=== PATIENT | male | born 1990 | race Caucasian/White ===

== ENCOUNTER 2017-03-19 11:33 | Emergency (ER) | payer MEDICAID, OTHER ==
[~2017-03-19] VITALS: Ht 162.6 cm; Wt 69.0 kg
[~2017-03-19 11:33] MED LIST: GUAI120S26 PO; LORA-186 PO
[2017-03-19 11:34] VITALS: Ht 162.6 cm; Wt 69.0 kg
[2017-03-19] MEDS ORDERED: LIDOCAINE 1% (MDV) 10 ML INJ INJ STA (12:47)
[2017-03-19] MEDS ORDERED: STERILE WATER 1L IRRIG BTL IRR STA (12:47)
[2017-03-19] MEDS ORDERED: ACETAMINOPHEN 325 MG TAB PO ONE (13:00)
[2017-03-19] MEDS ORDERED: CEPH-443 PO (13:27)
[2017-03-19] MEDS ORDERED: CEPHALEXIN 500 MG CAP PO ONE (13:30)
--- NOTE | 2017-03-19 13:32 | ERD ---
ER Documentation Chief Complaint Chief Complaint Lac on forehead x 12 hours fell down stairs HPI This 26-year-old male gives a history of tripping down some stairs last night and hitting his forehead on concrete. He presents to the ER this morning for a laceration on his forehead. Denies any loss of consciousness, vomiting, fevers , visual changes, neck pain, weakness. Tetanus is up-to-date. ROS All systems reviewed and are negative except as per history of present illness. Medications Home Meds Active Scripts Cephalexin* (Keflex*) 500 Mg Capsule, 500 MG PO QID for 5 Days, CAP Prov:COLETTE VALENZUELA MD 03/19/17 Loratadine* (Claritin*) 10 Mg Tablet, 10 MG PO DAILY, #30 TAB Prov:EDDIE NEVILLE NP 10/12/14 Glzzbofhjtb-J-Nczqvpecqn Hb* (Guaifenesin* DM Syrup) 120 Ml Syrup, 10 ML PO Q4H Y for COUGH, #1 BOT Prov:EDDIE NEVILLE NP 10/12/14 Allergies Allergies: Coded Allergies: No Known Allergy (Unverified , 10/12/14) PMhx/Soc Medical and Surgical Hx: pt denies Medical Hx, pt denies Surgical Hx History of Surgery: No Anesthesia Reaction: No Hx Neurological Disorder: No Hx Respiratory Disorders: No Hx Cardiac Disorders: No Hx Psychiatric Problems: No Hx Miscellaneous Medical Probl: No Hx Alcohol Use: No Hx Substance Use: No Hx Tobacco Use: No Smoking Status: Never smoker Physical Exam Vitals Vital Signs Date Time Temp Pulse Resp B/P Pulse Ox O2 Delivery O2 Flow Rate FiO2 03/19/17 11:34 97.3 102 19 135/90 99 Physical Exam Const: [], Wep-irv-taxjukwmn. Head: Atraumatic. 3 cm laceration horizontally between the eyebrows. No bony tenderness or deformities. Eyes: Normal Conjunctiva. Eyes PERRLA and extraocular movements intact. ENT: Normal External Ears, Nose and Mouth. Neck: Full range of motion..~ No meningismus. Resp: Clear to auscultation bilaterally Cardio: Regular rate and rhythm, no murmurs Abd: Soft, non tender, non distended. Normal bowel sounds Skin: No petechiae or rashes Back: No midline or flank tenderness Ext: No cyanosis, or edema Neur: Awake and alert. No appreciable focal neurologic deficits. Psych: Normal Mood and Affect Results 24 hrs Current Medications Medications (Trade) Dose Ordered Sig/Andrei Route PRN Reason Start Time Stop Time Status Last Admin Dose Admin Acetaminophen (Tylenol Tab) 325 mg ONCE ONCE PO 03/19/17 13:00 03/19/17 13:01 DC 03/19/17 12:58 Sterile Water (Water Sterile For Irrigation) 1,000 ml ONCE STAT IRR 03/19/17 12:47 03/19/17 12:48 DC 03/19/17 12:54 Lidocaine HCl (Lidocaine 1% (Mdv) 10 ml) 10 ml ONCE STAT INJ 03/19/17 12:47 03/19/17 12:49 DC Cephalexin (Keflex) 500 mg ONCE ONCE PO 03/19/17 13:30 03/19/17 13:31 Procedures/MDM Patient presents with a laceration of the forehead which is 68 hours old. There is no signs or symptoms to suggest fracture, intracranial bleeding, neck pain or injury or neurologic deficits. There is no current signs of infection. Procedure note-forehead laceration was irrigated topically with normal saline. 2 cc of lidocaine was used for local infiltration. 7 6-0 nylon sutures were used to approximate the wound and the patient tolerated procedure well and the wound was dressed. Patient was counseled on delayed closure wound as the wound edges were slightly swollen and may affect wound healing or increased risk of infection or scarring. Patient is given Keflex 500 mg here and will be treated with Keflex, instructions for 2 day wound check in 5-7 days suture removal and head injury precautions. Patient has no signs or symptoms currently of head injury or neck injury but is advised to recheck for new or worsening symptoms as directed. Disclaimer: Inadvertent spelling and grammatical errors are likely due to EHR/ dictation software use and do not reflect on the overall quality of patient care. Also, please note that the electronic time recorded on this note does not necessarily reflect the actual time of the patient encounter. Departure Diagnosis: Primary Impression: Head injury Encounter type: initial encounter Qualified Code: S09.90XA - Injury of head , initial encounter Additional Impression: Laceration Condition: Stable Patient Instructions: HEAD INJURY, No Wake-Up (Adult), Laceration, Face ( Suture Or Tape) Additional Instructions: 2 days wound check in 5-7 days suture removal. Recheck sooner for fevers, vomiting, new symptoms. COLETTE VALENZUELA MD Mar 19, 2017 13:32
== END 2017-03-19 14:00 | disposition home or self-care (01) ==
LOC: FTE 11:33
DX: S01.81XA Laceration without foreign body of other part of head, initial encounter (principal); S09.90XA Unspecified injury of head, initial encounter; W10.8XXA Fall (on) (from) other stairs and steps, initial encounter; Y92.9 Unspecified place or not applicable
CPT/HCPCS: 12013; A4217; Z7502; Z7610

== ENCOUNTER 2017-03-21 10:59 | Emergency (ER) | payer MEDICAID, OTHER ==
[~2017-03-21] VITALS: Ht 167.6 cm; Wt 72.9 kg
[~2017-03-21 10:59] MED LIST changes: +CEPH-443 PO
[2017-03-21 11:05] VITALS: Ht 167.6 cm; Wt 72.9 kg
--- NOTE | 2017-03-21 12:15 | ERD ---
ER Documentation Chief Complaint Chief Complaint HAD SUTURES 2 DAYS AGO ON HIS FOREHEAD AND F/U HPI 26-year-old male comes in for wound check from sutures that were placed 2 days ago from a fall. Patient states that he fell forward hitting the concrete, there was no loss consciousness or vomiting. The sutures were placed and the patient was started on Keflex. He denies any headaches, blurry vision, nausea or vomiting. ROS All systems reviewed and are negative except as per history of present illness. Medications Home Meds Active Scripts Cephalexin* (Keflex*) 500 Mg Capsule, 500 MG PO QID for 5 Days, CAP Prov:COLETTE VALENZUELA MD 03/19/17 Loratadine* (Claritin*) 10 Mg Tablet, 10 MG PO DAILY, #30 TAB Prov:EDDIE NEVILLE NP 10/12/14 Rhjrjitecki-Q-Guglpcbtyr Hb* (Guaifenesin* DM Syrup) 120 Ml Syrup, 10 ML PO Q4H Y for COUGH, #1 BOT Prov:EDDIE NEVILLE NP 10/12/14 Allergies Allergies: Coded Allergies: No Known Allergy (Unverified , 10/12/14) PMhx/Soc History of Surgery: No Anesthesia Reaction: No Hx Neurological Disorder: No Hx Respiratory Disorders: No Hx Cardiac Disorders: No Hx Psychiatric Problems: No Hx Miscellaneous Medical Probl: No Hx Alcohol Use: No Hx Substance Use: No Hx Tobacco Use: No Physical Exam Vitals Vital Signs Date Time Temp Pulse Resp B/P Pulse Ox O2 Delivery O2 Flow Rate FiO2 03/21/17 11:05 98.0 78 14 114/72 98 Physical Exam General: Well-developed, well-nourished. The patient appears in no acute distress. HEENT: Head is normocephalic, atraumatic. No scleral icterus. 7 simple interrupted sutures intact, no dehiscence, erythema or drainage, there is a hematoma surrounding the wound. Neck: Supple. Nontender. Lungs: Clear to auscultation. Normal air movement. Heart: Regular rate and rhythm. S1 and S2 are normal. No murmurs, gallops, or rubs. Abdomen: Nondistended. Extremities: No clubbing or cyanosis. Moving extremities x 4. No weakness. Neurologic: Alert and oriented 3. No focal deficits. Normal speech and gait. Skin: Normal turgor. No rash or lesions. Procedures/MDM Wound shows no evidence of infection, foreign body, neurologic injury, vascular injury, open joint or tendon laceration. Patient appropriate for outpatient follow up. Departure Diagnosis: Primary Impression: Encounter for wound re-check Patient Instructions: Wound Check, Lac F/U (No Infection) TIMBO NOVOA PA-C Mar 21, 2017 12:15
== END 2017-03-21 11:57 | disposition home or self-care (01) ==
LOC: FTE 10:59
DX: Z48.01 Encounter for change or removal of surgical wound dressing (principal)
CPT/HCPCS: 99281

== ENCOUNTER 2017-03-24 13:14 | Emergency (ER) | payer OTHER ==
[~2017-03-24] VITALS: Ht 167.6 cm; Wt 72.3 kg
[2017-03-24 13:24] VITALS: Ht 167.6 cm; Wt 72.3 kg
[2017-03-24] MEDS ORDERED: NEOM1PAC TP (15:13)
--- NOTE | 2017-03-24 15:19 | ERD ---
ER Documentation Chief Complaint Chief Complaint forehead suture removal HPI This 26-year-old male presents the emergency department today for suture removal sutures that he had placed 5 days ago after slipping and falling down some stairs and hitting his head. Denies any fevers or chills, headache, dizziness or blurred vision. States he is taking his antibiotics. ROS All systems reviewed and are negative except as per history of present illness. Medications Home Meds Active Scripts Neomycin Negrete/Bacitrac Zn/Poly (Triple Antibiotic Ointment) 1 Each Oint.pack, 1 EACH TP BID for 7 Days Prov:BEBETO ADAN PA-C 03/24/17 Cephalexin* (Keflex*) 500 Mg Capsule, 500 MG PO QID for 5 Days, CAP Prov:COLETTE VALENZUELA MD 03/19/17 Loratadine* (Claritin*) 10 Mg Tablet, 10 MG PO DAILY, #30 TAB Prov:EDDIE NEVILLE NP 10/12/14 Krlzfirvedc-T-Dqaszdwaii Hb* (Guaifenesin* DM Syrup) 120 Ml Syrup, 10 ML PO Q4H Y for COUGH, #1 BOT Prov:EDDIE NEVILLE NP 10/12/14 Allergies Allergies: Coded Allergies: No Known Allergy (Unverified , 10/12/14) PMhx/Soc History of Surgery: No Anesthesia Reaction: No Hx Neurological Disorder: No Hx Respiratory Disorders: No Hx Cardiac Disorders: No Hx Psychiatric Problems: No Hx Miscellaneous Medical Probl: No Hx Alcohol Use: No Hx Substance Use: No Hx Tobacco Use: No Smoking Status: Never smoker Physical Exam Vitals Vital Signs Date Time Temp Pulse Resp B/P Pulse Ox O2 Delivery O2 Flow Rate FiO2 03/24/17 13:24 97.9 98 18 121/67 97 Physical Exam Const: NAD Head: Evidence of 7 sutures placed left side of forehead. Eyes: Normal Conjunctiva ENT: Normal External Ears, Nose and Mouth. Neck: Full range of motion..~ No meningismus. Resp: Clear to auscultation bilaterally Cardio: Regular rate and rhythm, no murmurs Abd: Soft, non tender, non distended. Normal bowel sounds Skin: Evidense of 7 sutures placed left side of forehead. Well-healed and well approximated. No purulent drainage erythema or warmth. Neur: Awake and alert Psych: Normal Mood and Affect Procedures/MDM This is a 26-year-old male who presents emergency department today for suture removal of sutures he had placed several days ago. Upon review of patient's medical records patient was seen here March 19 and had 7 sutures placed on the left side of his forehead after tripping and falling down some stairs and hitting his head. At this time patient is afebrile and otherwise well- appearing. He does indicate that he is taking his antibiotics. He was instructed to continue taking them for the next couple of days. He denies any headache, dizziness blurred vision I do not feel the patient requires further workup or imaging at this time. Low suspicion for acute hemorrhage, mass, abscess, meningitis. Low suspicion for sepsis, deep space tracking infection. 7 sutures removed without complication. Patient tolerated procedure well. I did place a few Steri-Strips instructed the patient keep it dry for another couple of days. The wound is well-healed and well approximated at this time. She was also given a prescription for triple antibiotic ointment. Departure Diagnosis: Primary Impression: Encounter for removal of sutures Condition: Fair Patient Instructions: Suture Removal, No Complication Referrals: [facility] YOU HAVE RECEIVED A MEDICAL SCREENING EXAM AND THE RESULTS INDICATE THAT YOU DO NOT HAVE A CONDITION THAT REQUIRES URGENT TREATMENT IN THE EMERGENCY DEPARTMENT. FURTHER EVALUATION AND TREATMENT OF YOUR CONDITION CAN WAIT UNTIL YOU ARE SEEN IN YOUR DOCTORS OFFICE WITHIN THE NEXT 1-2 DAYS. IT IS YOUR RESPONSIBILITY TO MAKE AN APPOINTMENT FOR FOLOW-UP CARE. IF YOU HAVE A PRIMARY DOCTOR --you should call your primary doctor and schedule an appointment IF YOU DO NOT HAVE A PRIMARY DOCTOR YOU CAN CALL OUR PHYSICIAN REFERRAL HOTLINE AT IF YOU CAN NOT AFFORD TO SEE A PHYSICIAN YOU CAN CHOSE FROM THE FOLLOWING [facility] [address] [place] [facility] [address] [facility] [address] [facility] [address] [facility] [address] [place] [address]. [facility] [address] Additional Instructions: Call your primary care doctor TOMORROW for an appointment during the next 1-2 days.See the doctor sooner or return here if your condition worsens before your appointment time. Wound clean and dry for another couple of days. Okay to remove Steri-Strips at that time. Okay to use triple antibiotic ointment BEBETO ADAN PA-C Mar 24, 2017 15:19
== END 2017-03-24 15:32 | disposition home or self-care (01) ==
LOC: FTE 13:14
DX: Z48.02 Encounter for removal of sutures (principal)
CPT/HCPCS: 99283

== ENCOUNTER 2017-07-25 23:39 | Emergency (ER) | END 2017-07-26 02:33 | disposition home or self-care (01) ==

== ENCOUNTER 2018-06-08 19:33 | Emergency (ER) | payer OTHER ==
[~2018-06-08] VITALS: Ht 170.2 cm; Wt 80.8 kg
[~2018-06-08 19:33] MED LIST changes: +AMOX500C2 PO; +CETI10CA PO; +IBUP-1542 PO; +NEOM1PAC TP
[2018-06-08 19:58] VITALS: Ht 170.2 cm; Wt 80.8 kg
[2018-06-08] MEDS ORDERED: SOD CHLORIDE 0.9% 1,000 ML IV STA (20:21)
[2018-06-08 20:36] VITALS: TEMP 98.1
--- NOTE | 2018-06-09 00:19 | ERD ---
ER Documentation Chief Complaint Chief Complaint Fall to floor after dizziness, hit face, R face swelling, R ear pain, dizzi HPI This is a 27-year-old male with a distant history of significant alcohol abuse is presenting after a syncopal event. The patient reports frequent episodes of increased nausea, dizziness and lightheadedness after going from laying down to sitting or sitting to standing. This is been ongoing for several months. Usually he has to equilibrate himself before getting up and the symptoms typically go away. The patient reports that this does not happen every day, when it does, he feels very dizzy, like the room is spinning around him. The patient also endorses chronic right ear pain and fullness. He frequently puts hydrogen peroxide into this ear and uses Q-tips so frequently that it has led to abrasions of the canal. The patient reports waking up this morning and getting up when the symptoms recurred and the patient fully syncopized for a few seconds. He did have a ground-level fall and reports hitting the right side of his face on the floor. There is no generalized shaking. The patient was not incontinent of urine or stool. The patient was not confused after the event. The patient currently feels a little fatigued, but otherwise has no complaints at this time. His symptoms have mostly resolved aside from a mild headache where he hit his face on the floor. The patient denies feeling sick recently. The patient denies fever or chills. The patient has had no vision changes. The patient does not endorse neck or back pain. The patient has had no chest pain or trouble breathing. The patient denies abdominal pain. The patient denies changes to bowel movements or urination. The patient has had no focal deficits. The patient has had no weakness or numbness or tingling to the face or extremities. ROS All systems reviewed and are negative except as per history of present illness. Medications Home Meds Active Scripts Ibuprofen* (Motrin*) 600 Mg Tab, 600 MG PO Q6H PRN for PAIN AND OR ELEVATED TEMP, #30 TAB Prov:EDDIE NEVILLE NP 07/26/17 Cetirizine Hcl* (Zyrtec*) 10 Mg Capsule, 10 MG PO DAILY, #30 TAB.CHEW Prov:EDDIE NEVILLE NP 07/26/17 Amoxicillin* (Amoxicillin*) 500 Mg Cap, 500 MG PO TID for 10 Days, CAP Prov:EDDIE NEVILLE NP 07/26/17 Neomycin Negrete/Bacitrac Zn/Poly (Triple Antibiotic Ointment) 1 Each Oint.pack, 1 EACH TP BID for 7 Days Prov:BEBETO ADAN PA-C 03/24/17 Cephalexin* (Keflex*) 500 Mg Capsule, 500 MG PO QID for 5 Days, CAP Prov:COLETTE VALENZUELA MD 03/19/17 Loratadine* (Claritin*) 10 Mg Tablet, 10 MG PO DAILY, #30 TAB Prov:EDDIE NEVILLE NP 10/12/14 Owcgejnyvti-F-Kabqsjyudy Hb* (Guaifenesin* DM Syrup) 120 Ml Syrup, 10 ML PO Q4H PRN for COUGH, #1 BOT Prov:EDDIE NEVILLE NP 10/12/14 Allergies Allergies: Coded Allergies: No Known Allergy (Unverified , 10/12/14) PMhx/Soc History of Surgery: No Anesthesia Reaction: No Hx Neurological Disorder: No Hx Respiratory Disorders: No Hx Cardiac Disorders: No Hx Psychiatric Problems: Yes (ANXIETY, ALCOHOLISM) Hx Miscellaneous Medical Probl: No Hx Alcohol Use: Yes Hx Substance Use: No Hx Tobacco Use: No Smoking Status: Never smoker FmHx Family History: No diabetes Physical Exam Vitals Vital Signs Date Temp Pulse Resp B/P (MAP) Pulse Ox O2 O2 Flow FiO2 Time Delivery Rate 06/09/18 99.1 63 12 127/80 96 Room Air 00:25 (96) 06/08/18 99.1 79 15 128/82 95 Room Air 23:34 (97) 06/08/18 99.1 73 13 129/83 97 Room Air 22:10 (98) 06/08/18 99.1 72 18 123/92 96 Room Air 21:14 (102) 06/08/18 99.1 77 18 115/79 96 Room Air 20:36 (91) 06/08/18 98.1 77 18 115/79 100 Room Air 20:36 (91) 06/08/18 99.1 96 18 129/70 96 19:58 (89) Physical Exam Const: No apparent distress, well-developed, well-nourished Head: Normocephalic, Atraumatic Eyes: No nystagmus. Normal Conjunctiva. Extraocular movements intact. Pupils equal, round and reactive to light ENT: Normal External Ears, Nose and Mouth. Tympanic membranes normal bilaterally. Mild abrasion in the right external auditory canal. Neck: Full range of motion. No meningismus. Resp: Clear to auscultation bilaterally, No wheezes, rales or rhonchi Cardio: Regular rate and rhythm. No murmurs, rubs or gallops Abd: Soft, non tender, non distended. Normal bowel sounds Skin: No petechiae or rashes Back: No midline tenderness. No CVA tenderness Ext: No cyanosis, or edema Neur: Awake and alert, oriented 4. Cranial nerves intact. No facial droop. Normal strength, sensation and coordination. Psych: Normal Mood and Affect Result Diagram: 06/08/18203406/08/182034 Results 24 hrs Laboratory Tests Test 06/08/18 20:35 06/08/18 20:49 06/08/18 22:00 White Blood Count 8.1 10^3/ul Red Blood Count 5.00 10^6/ul Hemoglobin 15.5 g/dl Hematocrit 43.9 % Mean Corpuscular Volume 87.8 fl Mean Corpuscular Hemoglobin 31.0 pg Mean Corpuscular 35.3 g/dl Hemoglobin Concent Red Cell Distribution Width 12.1 % Platelet Count 239 10^3/UL Mean Platelet Volume 9.0 fl Immature Granulocytes % 0.400 % Neutrophils % 64.6 % Lymphocytes % 24.2 % Monocytes % 9.3 % Eosinophils % 1.0 % Basophils % 0.5 % Nucleated Red Blood Cells % 0.0 /100WBC Immature Granulocytes # 0.030 10^3/ul Neutrophils # 5.2 10^3/ul Lymphocytes # 2.0 10^3/ul Monocytes # 0.8 10^3/ul Eosinophils # 0.1 10^3/ul Basophils # 0.0 10^3/ul Nucleated Red Blood Cells # 0.0 10^3/ul Sodium Level 142 mmol/L Potassium Level 3.4 mmol/L Chloride Level 104 mmol/L Carbon Dioxide Level 25 mmol/L Anion Gap 13 Blood Urea Nitrogen 12 mg/dl Creatinine 0.87 mg/dl Est Glomerular Filtrat > 60 mL/min Rate mL/min Glucose Level 103 mg/dl Calcium Level 9.7 mg/dl Troponin I < 0.012 ng/ml Bedside Glucose 102 mg/dL Urine Color YELLOW Urine Clarity CLEAR Urine pH 5.0 Urine Specific [place] 1.029 Urine Ketones NEGATIVE mg/dL Urine Nitrite NEGATIVE mg/dL Urine Bilirubin NEGATIVE mg/dL Urine Urobilinogen 2+ mg/dL Urine Leukocyte Esterase NEGATIVE Moni/ul Urine Hemoglobin NEGATIVE mg/dL Urine Glucose NEGATIVE mg/dL Urine Total Protein NEGATIVE mg/dl Current Medications Medications Dose Sig/Andrei Start Time Status Last (Trade) Ordered Route PRN Stop Time Admin Dose Reason Admin Sodium 1,000 ml @ Q1H STAT 06/08/18 DC 06/08/18 Chloride 1,000 mls/hr IV 20:21 06/08/18 20:35 21:20 Procedures/MDM MDM The patient's presentation warrants further investigation. Previous medical records, if available, were reviewed. LABS The patient's laboratory testing was obtained and reviewed. No emergent treatment was required unless described below. CBC: No E/o systemic infection or severe anemia or thrombocytopenia Chemistry: No E/o severe acidosis or alkalosis or renal failure or diabetic ketoacidosis Troponin: No E/o acute ischemia Urine: No E/o acute infection or hematuria EKG EKG read by me: Rate/Rhythm: Regular rate and rhythm at a rate of 81 bpm with a sinus arrhythmia Intervals: Normal [place]: Normal Impression: No evidence of acute ischemia or arrhythmia IMAGING Imaging and Radiology interpretation reviewed. CXR FINDINGS: The heart and mediastinum are within normal limits. The lungs are clear. There is no pleural effusion or pneumothorax. IMPRESSION: No acute disease. Electronically viewed and signed by .Eric Nj MD, on 06/08/2018 21:42 TREATMENT/DISPOSITION The patient presents after a syncopal event. The patient has a reassuring physical exam. The patient is not clinically orthostatic. The patient is not cur rently dizzy, but his symptoms could potentially be related to benign paroxysmal positional vertigo. The patient was encouraged to follow-up with his primary doctor who may possibly coordinate care with an ENT physician if his symptoms persist. The patient has no signs of emergent or symptomatic anemia. The patient does not have any emergent electrolyte or metabolic emergencies. I have decrease suspicion for a thyroid disorder. The patient is not toxic appearing. I have decreased suspicion for an infectious etiology of symptoms. The patient's EKG and troponin are reassuring. I have low suspicion for acute coronary syndrome. I do not see evidence of any emergent cardiac arrhythmia, which includes but is not limited to heart block, Brugada syndrome or WPW. The patient has no heart murmurs or rales. There is no evidence of cardiomegaly on exam or chest xray. I have low suspicion for hypertrophic cardiomyopathy. I do not see evidence of CHF. The patient does not endorse any chest or pleuritic pain. The history is negative for bleeding or clotting disorders. The patient has not been involved in any recent prolonged trips or surgeries or hospitalizations. The patient has no calf tenderness or swelling. I have decreased suspicion for PE as the etiology of symptoms. The patient has no focal deficits. The neurologic exam is reassuring. I have decreased suspicion for cerebral ischemia. There was no trauma or injury. There is no personal or family history of cerebral aneurysm. I have decreased suspicion for SAH or other ICH. I have low suspicion for temporal arteritis, cavernous venous thrombosis, subdural hematoma, epidural hematoma, meningitis. The [place] Syncope Rule was applied and the patient was found to be low risk for a serious outcome. The patient was treated with normal saline with improvement of his symptoms. Upon reevaluation of the patient, symptoms have improved. No emergent diagnoses were identified. At this time, I feel that the patient stable for discharge. The patient was instructed to follow-up with a primary care physician in 1-3 days. The patient will be given strict precautions with which to return to the emergency department. Prescriptions: None The patient's blood pressure was elevated at greater than 120/80 while in the emergency department. The patient was otherwise stable with no evidence of hypertensive urgency or emergency. The patient does not require admission for blood pressure control. I have discussed with the patient the risks of hypertension. I have instructed the patient to return to the ER for any new or worsening symptoms including chest pain, shortness of breath, headache, blurred vision, confusion, nausea, vomiting or LOC. I have advised the patient to follow up with the primary care physician for outpatient monitoring and treatment for hypertension in 1-3 days. Disclaimer: Inadvertent spelling and grammatical errors are likely due to EHR/dictation software use and do not reflect on the overall quality of patient care. Note that the electronic time recorded on this note does not necessarily reflect the actual time of the patient encounter. Departure Diagnosis: Primary Impression: Syncope Syncope type: unspecified Qualified Codes: R55 - Syncope and collapse Additional Impressions: Hypokalemia Chronic right ear pain Condition: Stable Patient Instructions: Syncope, Unk Cause MAISHA PERKINS MD Jun 09, 2018 00:19
[2018-06-09 00:25] VITALS: BP 127/80; PULSE 63; RESP 12
== END 2018-06-09 00:31 | disposition home or self-care (01) ==
LOC: E/R 19:33
DX: E87.6 Hypokalemia (principal); H92.01 Otalgia, right ear
CPT/HCPCS: 36415; 71045; 80048; 81003; 82962; 84484; 85025; 93005; J7030; Z7502